=== PATIENT | female | born 1960 | race Caucasian/White ===

== ENCOUNTER 2023-11-28 10:45 | Emergency (ER) | payer OTHER, SELFPAY ==
[2023-11-28 10:49] VITALS: BP 136/75
[2023-11-28 12:05] VITALS: BP 134/81; BMI 32.0
[2023-11-28] MEDS: NORCO 5/325 1 TABLET PO (12:06)
[2023-11-28 13:04] LABS: Glucose - Point of Care 90 mg/dl (70-99)
--- NOTE | 2023-11-28 13:26 | ED.GENMED ---
History of Present Illness
General
Chief Complaint: Back Pain
Source: patient and family
Exam Limitations: none
Time Seen by Provider: 11/28/23 11:13
Nursing documentation reviewed up to this point in time: agreed with
Travel History
Have you had any contact with someone who has COVID-19?: No
Do you have any symptoms of coronavirus? Fever > 100 degrees, chills, cough, shortness of breath, sore throat, loss of taste or smell, muscle aches, or headache?: No
History of Present Illness
History of Present Illness:
Patient is a 63-year-old female with a history of hypertension presents with right-sided back pain that radiates down her right leg ever since 2�21. She believes she rolled off the bed but did not think she had any significant injury when the pain
began. Seems like each day the pain is getting worse. It is in the posterior hip region and will shoot down her leg. She has not had any numbness or weakness associated with the pain. She has not had any incontinence. It is very painful to
change positions. She has tried Tylenol and diclofenac which she is able to get at her [facility] without a prescription. This has not helped. She is also tried regular Advil. Patient's last dose was this morning 6 AM. She is having a lot
more pain with walking recently. Patient has never had any x-rays of her back or any chronic back problems
Past History
Past History
ED Past Medical History: HTN
ED Past Surgical History: Appendectomy and Orthopedic
Social History
Tobacco: Non-smoker
Alcohol: None
Drug: None
Review of Systems
Review of Systems
Allergies reviewed?: Yes
All Other Systems: Not applicable
Phy Exam
Physical Exam
Physical Exam:
GENERAL: Alert , in no apparent distress, comfortable at rest
HEAD: NCAT
NECK: no midline tenderness, active ROM intact, no paraspinal muscle tenderness;
CARDIAC: Regular rate and rhythm, no edema
LUNGS: Clear breath sounds bilaterally, no acute respiratory distress, no wheezes/rales/rhonchi
ABDOMEN: Soft, without focal tenderness, no r/g, no cvat, normal bowel sounds, nondistended
NEUROLOGICAL: Alert and oriented, no focal neuro deficits, CN intact, 5/5 strength, sensation intact, ambulation slight limp left leg
SKIN: Warm and dry,
MUSCULOSKELETAL: No edema, well perfused. Normal inspection of the right hip, right leg
Patient has no tenderness to palpation of the hip, moderate tenderness in the SI joint
has some pain with flexion and rotation, though full rom intact
Back: No midline tenderness, mild dextroscoliosis, slight left paraspinal muscle tenderness on exam, no swelling
negative straight leg raise Bilaterally
PSYCH: Normal and appropriate interaction.
Course
Orders/Labs/Results
Orders:
Orders
11/28/23 11:59
Hydrocodone 5/APAP 325 [Mystic 5/325] 1 tablet PO NOW STA
Hip, Right 2-3 Views [CR Hip - RT w/wo Pel 2-3 Vw*] Urgent
Comment:
Reason For Exam: right hip pain/si joint pain
Include a pelvis x-ray?: Yes
Lumbar Spine Complete, 4 View [CR Lumbar Spine Comp Min 4 Vw*] Urgent
Comment:
Reason For Exam: lower back pain
11/28/23 12:58
Bedside Glucose- Treatment ONCE
Vital Signs
Initial and Last Documented VS:
Initial Vital Signs
Temp Pulse Resp BP Pulse Ox
98.5 F 78 18 136/75 98
11/28/23 10:49 11/28/23 10:49 11/28/23 10:49 11/28/23 10:49 11/28/23 10:49
Last Documented Vital Signs
Temp Pulse Resp BP Pulse Ox
98.5 F 78 18 134/81 95
11/28/23 10:49 11/28/23 10:49 11/28/23 10:49 11/28/23 12:05 11/28/23 13:15
MDM/Problems Addressed
Differential Diagnosis Includes:
sciatica, lumbar radiculop[athy, arthritis
MDM/Problems Addressed:
63 y/o F with h/o HTN
here with weeks of R posterior hip pain with some radiation down leg
no weakness/numbness/incontinence
not getting better with nsaids an dtylenol and topical pain gels
on exam tender R si joint tendenress
neg straight leg raise
pain with ortation of hte hip and flexion of the back
nv itnact
xrays screening show DJD/ddd
suspect pt has some si joint inflammation and some sciatica
has tried nsaids
will try round of steroids
bg normal screening
pred daily
lidocaine patch
vicodin prn severe pain
*Critical Care Note
Total Time (30-74mins, 75-104mins- exclusive of procedures): Not Applicable
ED Attending Note
-
Portions of this chart may have been created with voice recognition software.� Occasional wrong word or��sound alike� substitutions may have occurred due to the inherent limitations of voice recognition software.
Discharge Plan
Departure
Patient Disposition: Home (Routine Discharge)
Date of Disposition: 11/28/23
Time of Disposition: 13:33
Patient with high blood pressure during this ER visit?: No
Condition: Fair
Covid-19: Not Applicable
Discharge Problem:
Sciatica
Instructions: Sciatica (DC), Degenerative Disc Disease (DC)
Prescriptions:
New
hydrocodone-acetaminophen 5-325 mg tablet
1 tab PO Q8H PRN (Reason: Pain) Qty: 9 0RF
lidocaine 5 % adhesive patch,medicated
1 patch topical DAILY PRN (Reason: pain) Qty: 15 0RF
Rx Instructions:
leave on for 12 hours then remove for 12 hours
Referrals:
Darrell Pulido MD [Family Provider] - Follow up in 5-7 days
Activity Restrictions/Additional Instructions:
You have some degenerative changes in your back. You probably have some inflammation of your sacroiliac joint causing some sciatica. You should try prednisone once a day for 5 days for inflammation. While you are on the prednisone you should not
use any ibuprofen or diclofenac. For severe pain you can take hydrocodone/Tylenol 1 tablet every 8 hours as needed, this may make you sleepy, do not use this and then drink alcohol or drive car. While on this medication you may want to consider a
stool softener like Colace. This pain medicine can make you constipated. If your pain is not severe you can substitute regular Tylenol in place of the hydrocodone/Tylenol.
Follow-up with your family doctor this week. You may need some physical therapy or further evaluation with an MRI. Return to the ER for severe worsening of symptoms like inability to walk, weakness or numbness in the leg, incontinence of urine,
fever or chills or any concerns
Interventions
Interventions:
*Risk Screen - Suicide Last Done: 11/28/23 12:05
*General Assessment Last Done: 11/28/23 12:05
*Neglect/Abuse Screening Last Done: 11/28/23 12:05
ED- Fall Risk Assessment Last Done: 11/28/23 12:05
*ED COVID-19 Vaccine History Last Done: 11/28/23 11:00
*Nursing Disposition Last Done: 11/28/23 13:53
ED-Musculoskeletal Assessment Last Done: 11/28/23 11:00
Discharge Date and Time
Discharge Date/Time: 11/28/23 13:54
== END 2023-11-28 13:54 | disposition home or self-care (01) ==
LOC: EMR 10:45
PROVIDERS: EMERGENCY PHYSICIAN Emergency Medicine; FAMILY PHYSICIAN Internal Medicine
DX: M54.41 Lumbago with sciatica, right side (principal); W06.XXXA Fall from bed, initial encounter; I10 Essential (primary) hypertension; Z90.49 Acquired absence of other specified parts of digestive tract
CPT/HCPCS: 99283; 72110; 73502; 82962

== ENCOUNTER 2024-02-05 09:27 | Emergency (ER) | payer OTHER, SELFPAY ==
[2024-02-05 09:35] VITALS: BP 145/87
--- NOTE | 2024-02-05 10:03 | ED.GENMED ---
History of Present Illness
General
Chief Complaint: Musculo-Skeletal Complaint
Time Seen by Provider: 02/05/24 10:03
Travel History
Have you had any contact with someone who has COVID-19?: No
Do you have any symptoms of coronavirus? Fever > 100 degrees, chills, cough, shortness of breath, sore throat, loss of taste or smell, muscle aches, or headache?: No
History of Present Illness
History of Present Illness:
HPI: Patient presents with low back pain described as rather severe. Is been going on over the last several weeks to months. She saw pain management yesterday�patient tells me that they ordered Tylenol with codeine. She reports no weakness to the
lower extremity however reports rather debilitating pain to the point that she can barely anymore. Pain management was planning on MRI but is unclear if this is already scheduled. She also request an epidural injection. Language Line was used.
EXAM:
GENERAL: Well appearing in no distress
HEENT: Moist oral mucosa
CARDIOVASCULAR: No murmurs, normal heart rate, regular rhythm, No chest wall tenderness
PULMONARY: No respiratory distress, breath sounds are clear and equal
ABDOMEN: Soft with no peritoneal signs, no tenderness
NEUROLOGIC: Excellent strength all extremities, no coordination deficits
PSYCHIATRIC: Appropriate mental status, normal insight and judgement
EXTREMITIES: Nontender, no edema, moves all extremities equally
SKIN: No rash, no lesions
TIME OF INITIAL ENCOUNTER: 10:30 AM
NUMBER AND COMPLEXITY OF PROBLEMS ADDRESSED AT THE ENCOUNTER
� Chronic conditions affecting care: High blood pressure
� Acute Exacerbation and/or Progression of Chronic Illness: This is an acute problem
� Differential Diagnosis includes: Sciatica, occult spine fracture, nonspecific musculoskeletal etiology, lumbar sprain
AMOUNT AND/OR COMPLEXITY OF DATA TO BE REVIEWED AND ANALYZED
� I performed an independent evaluation of and my interpretation is:
EKG:
CT: CT imaging personally reviewed, there is evidence for degenerative disease as well as likely bulging/herniated disc
X-rays:
Laboratory Studies:
Other:
� Review of other/old records: X-ray of the lumbar spine 3 showed degenerative changes with no evidence of fracture
� Clinical information was obtained by an independent historian: I spoke to family at bedside
� Prescriptions/Medications Considered but not given:
� Further testing considered but not performed:
RISK OF COMPLICATIONS AND/OR MORBIDITY OR MORTALITY OF PATIENT MANAGEMENT
� Social determinants of health affecting care: Lives at home
� Discussion with other providers:
� Escalation of care including admission/observation vs risk of discharge considered: The patient already had steroid injection, saw pain management, was referred for MRI, has already been on steroids, has already been on
narcotic analgesia. She has not seen a medical records specialist yet. On reevaluation at 1 PM, the patient appears improved and states she is improved. We did give steroid and IM Toradol here. Will start oral steroids and switch from codeine to Percocet.
I have also given the contact information for local spine specialists.
Past History
Past History
ED Past Medical History: HTN
ED Past Surgical History: Appendectomy and Orthopedic
Social History
Tobacco: Non-smoker
Alcohol: None
Drug: None
Phy Exam
Physical Exam
Physical Exam:
See HPI
Course
Orders/Labs/Results
Orders:
Orders
02/05/24 10:26
CT Lumbar Spine W/o Iv Contras Urgent
Comment:
Reason For Exam: severe R low back pain rad RLE ?weak
Ketorolac [Toradol] 30 mg IM NOW STA
Prednisone [Deltasone] 50 mg PO NOW STA
Vital Signs
Initial and Last Documented VS:
Initial Vital Signs
Temp Pulse Resp BP Pulse Ox
98.9 F 78 20 145/87 96
02/05/24 09:35 02/05/24 09:35 02/05/24 09:35 02/05/24 09:35 02/05/24 09:35
Last Documented Vital Signs
Temp Pulse Resp BP Pulse Ox
98.9 F 78 20 145/87 96
02/05/24 09:35 02/05/24 09:35 02/05/24 09:35 02/05/24 09:35 02/05/24 09:35
*Critical Care Note
Total Time (30-74mins, 75-104mins- exclusive of procedures): Not Applicable
ED Attending Note
-
Portions of this chart may have been created with voice recognition software.� Occasional wrong word or��sound alike� substitutions may have occurred due to the inherent limitations of voice recognition software.
Discharge Plan
Departure
Patient Disposition: Home (Routine Discharge)
Date of Disposition: 02/05/24
Time of Disposition: 13:20
Patient with high blood pressure during this ER visit?: Yes
Discharge Problem:
Sciatica
Instructions: Sciatica (DC)
Prescriptions:
New
oxycodone-acetaminophen [Percocet] 5-325 mg tablet
1 - 2 tab PO Q6HPRN PRN (Reason: pain) Qty: 14 0RF
prednisone 50 mg tablet
50 mg PO DAILY Qty: 4 0RF
No Action
hydrocodone-acetaminophen 5-325 mg tablet
1 tab PO Q8H PRN (Reason: Pain) Qty: 9 0RF
lidocaine 5 % adhesive patch,medicated
1 patch topical DAILY PRN (Reason: pain) Qty: 15 0RF
Rx Instructions:
leave on for 12 hours then remove for 12 hours
Referrals:
Rocio Segal DO [Active] - Follow up in 2-3 days
Jeronimo Russo CRNP [Family Provider] -
Daryl Wilde MD [Active] - Follow up in 2-3 days
Activity Restrictions/Additional Instructions:
The lumbar spine CAT scan shows degenerative disease, there is also suggestion of bulging disc/disc herniation. I have given you the contact information for local spine specialists. If you take Percocet for pain, do not take Ultram/tramadol. Next
dose of prednisone tomorrow. If you take the narcotic pain medication (Percocet), I recommend taking some like MiraLAX to prevent constipation.
Interventions
Interventions:
*ED COVID-19 Vaccine History Last Done: 02/05/24 09:38
Discharge Date and Time
Print Language: SWEDISH
[2024-02-05 10:57] VITALS: BMI 34.5
[2024-02-05] MEDS: DELTASONE 50 MG PO (10:58)
[2024-02-05] MEDS: TORADOL 30 MG IM (10:58)
== END 2024-02-05 14:29 | disposition home or self-care (01) ==
LOC: EMR 09:27
PROVIDERS: EMERGENCY PHYSICIAN Emergency Medicine; FAMILY PHYSICIAN Nurse Practitioner Adult Health
DX: M54.40 Lumbago with sciatica, unspecified side (principal); R26.2 Difficulty in walking, not elsewhere classified; M51.36 Other intervertebral disc degeneration, lumbar region; I10 Essential (primary) hypertension
CPT/HCPCS: 99284; 96372; 72131